=== PATIENT | male | born 1955 | race Caucasian/White ===

== ENCOUNTER 2017-06-19 16:51 | Emergency (ER) | payer SELFPAY ==
[~2017-06-19] VITALS: Ht 172.7 cm; Wt 75.5 kg
[2017-06-19 16:56] VITALS: BP 119/93
--- NOTE | 2017-06-19 16:59 | NUR ---
PT AA&OX4 WITH EVEN AND STEADY GAIT; BL LUNG SOUNDS CLEAR; PT SPEAKING IN FULL, COMPLETE SENTENCES, O2 SATURATION 98% ON ROOM AIR AT THIS TIME; PT TO LOBBY AWAITING OPEN BED.
--- NOTE | 2017-06-19 17:22 | NUR ---
Pt w/c assisted to chair Pham
--- NOTE | 2017-06-19 17:48 | NUR ---
Patient discharged with v/s stable. Written and verbal after care instructions given and explained BY DR GIL Patient alert, oriented and verbalized understanding of instructions. Ambulatory with steady gait. All questions addressed prior to discharge. ID band removed. Patient advised to follow up with PMD. Rx of AUGMENTIN AND MEDROL given. Patient educated on indication of medication including possible reaction and side effects. Opportunity to ask questions provided and answered.
[2017-06-19 17:51] VITALS: BP 119/93
== END 2017-06-19 17:48 | disposition home or self-care (01) ==
LOC: MED 16:51
DX: J45.909 Unspecified asthma, uncomplicated (principal)
CPT/HCPCS: 71045; 99283